=== PATIENT | male | born 1955 | race Caucasian/White ===

== ENCOUNTER 2016-11-01 20:43 | Emergency (ER) | payer MEDICARE ==
[2016-11-01 20:44] VITALS: BMI 21.6
[2016-11-01 20:55] VITALS: TEMP 97.5
--- NOTE | 2016-11-01 21:15 | C.PDOC ---
History Of Present Illness A 61 year old male, whose past medical history includes hypertension, diabetes, and chronic kidney disease, presents to the emergency department for gas and loose stools, which began 1 week ago. The patient admits to drinking two bottles of maxitrate earlier today. The medicine caused the patient to have profuse watery diarrhea with nausea and vomiting. The patient states he took his clonidine hcl 2 hours ago, but does not know if he threw it up or not. The patient denies any fever, chest pain, cough, or any other complaints at this time. Concerned he may have done damage to his renal transplant and expects renal function tests. Time Seen by Provider: 11/01/16 20:58 Chief Complaint (Nursing): Headache History Per: Patient History/Exam Limitations: no limitations Onset/Duration Of Symptoms: Days (x 1 week ) Current Symptoms Are (Timing): Still Present Associated Symptoms: Nausea, Vomiting, Other (diarrhea ) Past Medical History Reviewed: Historical Data, Nursing Documentation, Vital Signs Vital Signs: Last Vital Signs Temp 97.5 F L 11/01/16 20:48 Pulse 68 11/01/16 21:58 Resp 18 11/01/16 21:58 BP 167/81 H 11/01/16 21:58 Pulse Ox 100 11/02/16 00:37 - Medical History PMH: Diabetes, HTN, Chronic Kidney Disease (Transplant (2 years ago)) Other Surgeries: renal transplant - [facility] Procedures HEMODIALYSIS (07/04/12) Family History: States: No Known Family Hx - Social History Hx Tobacco Use: No Hx Alcohol Use: No Hx Substance Use: No - Immunization History Hx Tetanus Toxoid Vaccination: No Hx Influenza Vaccination: No Hx Pneumococcal Vaccination: No Review Of Systems Except As Marked, All Systems Reviewed And Found Negative. Constitutional: Negative for: Fever Cardiovascular: Negative for: Chest Pain Respiratory: Negative for: Cough Gastrointestinal: Positive for: Nausea, Vomiting, Abdominal Pain, Diarrhea Physical Exam - Physical Exam Appears: Well, No Acute Distress Skin: Normal Color, Warm, Dry Head: Atraumatic, Normacephalic Eye(s): bilateral: Normal Inspection, PERRL, EOMI Nose: Normal Throat: Normal Neck: Normal Cardiovascular: Rhythm Regular Respiratory: Normal Breath Sounds Gastrointestinal/Abdominal: Normal Exam, Bowel Sounds, Soft, No Guarding, No Rebound Back: Normal Inspection Extremity: Normal ROM ED Course And Treatment - Laboratory Results Result Diagrams: 11/01/16 21:12 11/01/16 21:12 Lab Interpretation: Abnormal (minor hypokalemia) ECG: Interpreted By Me ECG Rhythm: Sinus Rhythm ECG Interpretation: Normal Rate From EC O2 Sat by Pulse Oximetry: 100 Pulse Ox Interpretation: Normal - Radiology CXR: Interpreted by Me CXR Interpretation: Yes: No Acute Disease - Other Rad abd x 2 X-Ray: Interpreted by Me (multiple small AF levels c/w ilius/diarrhea) Medical Decision Making Medical Decision Making: Treatment Plan: -- EKG -- CBC -- Obstructive Series -- Pepcid, Toradol, Trandate, Zofran -- Saline Lock -- Urinalysis Progress Notes: diarrhea, n/v, watery stools in small bowel after 2 bottles of Mag Citrate probably provoking abnormal gas/fluid pattern in small bowels Extensively educated to avoid laxative abuse, ESPECIALLY when pt already has diarrhea! Belly benign renal function preserved. Minor hypokalemia incidental with normal EKG, defer repleating. Disposition Doctor Will See Patient In The: Office Counseled Patient/Family Regarding: Studies Performed, Diagnosis - Disposition Referrals: [facility] [Outside] [facility] [employer] [facility] [Outside] Disposition: HOME/ ROUTINE Disposition Time: 21:43 Condition: GOOD Additional Instructions: nilton el abuso de Mag Citrate Dieta saludable tamica mayuri agua Prescriptions: Ondansetron ODT [Zofran ODT] 4 mg PO Q8H PRN #6 odt PRN Reason: Nausea/Vomiting Instructions: Gastroenteritis (ED) Forms: [employer] (Turkmen) Print Language: JAPANESE - Clinical Impression Clinical Impression: Gastroenteritis - Scribe Statement The provider has reviewed the documentation as recorded by the Scribe Nahed Marte All medical record entries made by the Scribe were at my direction and personally dictated by me. I have reviewed the chart and agree that the record accurately reflects my personal performance of the history, physical exam, medical decision making, and the department course for this patient. I have also personally directed, reviewed, and agree with the discharge instructions and disposition.
[2016-11-01 21:17] LABS: BASO % 0.5 % (0.0-2.0); EOS # 0.1 K/uL (0.0-0.7); EOS % 1.2 % (0.0-4.0); HEMATOCRIT 44.4 % (35.0-51.0); LYMPH # 1.5 K/uL (1.0-4.3); LYMPH % 18.8 % (20.0-40.0); MEAN CELL VOLUME 86.4 fL (80.0-94.0); MEAN CORPUSCULAR HEMOGLOBIN 29.4 pg (27.0-31.0); MEAN PLATELET VOLUME 8.8 fL (7.2-11.7); MONO # 0.8 K/uL (0.0-0.8); MONO % 9.9 % (0.0-10.0); RED CELL DISTRIBUTION WIDTH 14.3 % (11.5-14.5); WHITE BLOOD COUNT 8.1 K/uL (4.8-10.8)
[2016-11-01 21:23] LABS: CHLORIDE 88 mmol/L (98-107)
[2016-11-01 21:24] LABS: POTASSIUM 3.1 mmol/L (3.6-5.2); SODIUM 128 mmol/L (132-148)
[2016-11-01 21:26] LABS: ALB/GLOB RATIO 1.4 (1.0-2.1); AST/SGOT 37 U/L (17-59); BILIRUBIN,TOTAL 0.7 mg/dL (0.2-1.3); CARBON DIOXIDE 24 mmol/L (22-30); GFR AFRICAN-AMERICAN > 60; TOTAL PROTEIN 7.8 g/dL (6.3-8.3)
[2016-11-01 21:27] LABS: ALKALINE PHOSPHATASE 80 U/L (38-126); ALT/SGPT 41 U/L (21-72); BLOOD UREA NITROGEN 10 mg/dL (9-20); CALCIUM 8.7 mg/dl (8.6-10.4); GLUCOSE,RANDOM 93 mg/dL (75-110)
[2016-11-01 21:59] VITALS: BP 167/81; PULSE 68; RESP 18
[2016-11-02 00:37] VITALS: O2SAT 100
--- NOTE | 2016-11-02 08:11 | RAD ---
PROCEDURE: Radiographs of the chest and abdomen (obstructive series) HISTORY: abd pain COMPARISON: CT abdomen and pelvis Jul 07 2014 and chest x-ray 09/07/[address] chest without contrast 07/09/2012. 05/29/2012 obstructive series TECHNIQUE: AP radiograph of the chest, with upright and supine radiographs of the abdomen. FINDINGS: CHEST: Lungs: There is marked interval change since 2014 consistent with diffuse bilateral probable reticulo nodular type opacities. Interval strandy fibrosis/scarring mid for/upper lung zone now present. Earlier 2012 CT chest reported fall pulmonary nodules . Cardiovascular: Top-normal heart size. No suspect central pulmonary vascular congestion Pleura: No pleural fluid. No pneumothorax. Other findings: Prior CT reported hilar mediastinal lymphadenopathy - this is not appreciated on this chest x-ray. Left axillary vascular stent similar-appearing since 2013 ABDOMEN AND PELVIS: Bowel: Multiple air-fluid levels throughout the small large bowel loops. More air-fluid levels throughout the small bowel and colon are suggested. No small or large bowel dilatation noted. No free air Free air: None. Bones: Minimal inferior lumbar spondylosis no fracture appreciated Other findings: The right hemipelvic / lower abdomen surgical clips are consistent with known prior right transplant kidney here IMPRESSION: Interval proliferation of diffuse bilateral pulmonary reticulonodular opacities. No dense consolidation. An infectious /immunocompromised etiology is a consideration. Consider pulmonary consultation if not already obtained. Bowel-gas pattern consistent with enteritis /diarrhea. No evidence of mechanical bowel obstruction. . No free air Right hemipelvic postsurgical change
--- NOTE | 2016-11-03 00:23 | CARD ---
APPROVED REPORT EKG Measurement Heart [id number] <Conclusion> Normal sinus rhythm Possible Left atrial enlargement Borderline ECG
== END 2016-11-01 21:59 | disposition home or self-care (01) ==
LOC: C.ER 20:43
DX: K52.9 Noninfective gastroenteritis and colitis, unspecified (principal)
CPT/HCPCS: 74022; 80053; 83690; 84484; 85025; 93005; 96374; 96375; 99285; J2405

== ENCOUNTER 2017-03-15 11:38 | Day surgery (SDC) | payer MEDICARE ==
[2017-03-10 11:14] VITALS: BMI 23.6
[2017-03-15] MEDS ORDERED: HEPARIN-NS 5,000 UNITS/500 ML 5,000 UNIT/500 ML BAG IV ONE (12:38)
[2017-03-15 12:51] LABS: PROTHROMBIN TIME 11.4 SECONDS (9.7-12.2)
[2017-03-15 12:59] LABS: ALBUMIN 4.6 g/dL (3.5-5.0); ALT/SGPT 34 U/L (21-72); AST/SGOT 27 U/L (17-59); BLOOD UREA NITROGEN 19 mg/dL (9-20); GFR AFRICAN-AMERICAN > 60; GFR NON-AFRICAN AMERICAN > 60
[2017-03-15 13:02] LABS: ALB/GLOB RATIO 1.2 (1.0-2.1)
[2017-03-15] MEDS ORDERED: Propofol 10 mg/ml Inj (20 ML) ONE (13:48)
[2017-03-15] MEDS ORDERED: ceFAZolin IV 2 gm in Dextrose 2 GM/50 ML BAG IVPB ONE (13:52)
[2017-03-15] MEDS ORDERED: Sodium Chloride 0.9% 1,000 ML IV ONE (13:55)
[2017-03-15] MEDS ORDERED: Dextrose 50% SYRINGE Inj (50 ml) ONE (13:57)
[2017-03-15] MEDS ORDERED: Oxycodone/Acetaminophen 5/325 mg Tab PO PRN (15:09)
[2017-03-15 15:34] VITALS: O2SAT 100
--- NOTE | 2017-03-15 16:17 | OP ---
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 PROCEDURE PERFORMED: Excision of arteriovenous fistula of left arm. SURGEON: Naldo Pickett MD. TYPE OF ANESTHESIA: General. ESTIMATED BLOOD LOSS: 75 mL. POSTOPERATIVE CONDITION: Stable. INDICATIONS FOR SURGERY: A 61-year-old male who had an AV fistula placed in his left arm for dialysis 5 years ago. He underwent dialysis for 2 years, had a kidney transplant which is currently functioning well. 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 DESCRIPTION OF PROCEDURE: The patient was taken to the operating room. General anesthesia was administered and the left upper extremity was prepped and draped. Serial transverse incisions were made across the fistula. It was dissected free and removed. Bleeding was controlled using the Bovie. Underlying exposed blood vessels were repaired with Prolene and the wounds were irrigated with saline. Adjacent tissue transfer closures were performed to close the space using multiple layers of Monocryl, subcuticular Monocryl and skin clips. The patient tolerated the procedure well, returned to the recovery room in stable condition. Naldo Pickett MD
[2017-03-15 17:20] VITALS: RESP 16
[2017-03-15 17:37] VITALS: BP 137/78; PULSE 77; TEMP 97.3
== END 2017-03-15 17:15 | disposition home or self-care (01) ==
LOC: C.SDS 11:38
PROVIDERS: ATTEND Surgery
DX: T82.868A Thrombosis due to vascular prosthetic devices, implants and grafts, initial encounter (principal); Z94.0 Kidney transplant status; Z99.2 Dependence on renal dialysis
CPT/HCPCS: 36415; 36815; 80053; 82948; 85610; 85730; 88305; J0690; J1170; J1644; J2405; J2704; J3010; J7040; J7070